=== PATIENT | female | born 1965 | race Caucasian/White ===

== ENCOUNTER → 2017-06-28 | Outpatient (CLI) | payer OTHER ==
[~2017-06-28] MED LIST: ONDANSETRON HCL4 M2 PO; PERCOCET 10-321 EACH PO
--- NOTE | ~2017-06-28 | EKG ---
[place] [address] [address] [facility] [place] [address] ELECTROCARDIOGRAM REPORT Name: DARRIN HO Room #: [facility]#: [id number] Admission: 06/28/17 Attend Phys: Kelsey Hillman MD Discharge: Date of : 61 Report #: [id number] THIS REPORT FOR: //name// [facility] Test Date: 2017-06-28 Test Time: 14:00:13 Pat Name: DARRIN HO Department: Room: Gender: F Network Support Analyst: MEL : 1965 Requested By: Kelsey Hillman Order Number: [id number] MD: William Sargent Measurements Intervals [place] Rate: 72 P: 60 GA: 154 QRS: 57 QRSD: 98 T: 27 QT: 399 QTc: 437 Interpretive Statements Sinus rhythm Baseline wander in lead(s) V3 No previous ECG available for comparison Electronically Signed On 06-29-2017 12:41:10 CDT by William Sargent [email or web address] <ELECTRONICALLY SIGNED> By: William Sargent MD, [facility] 06/29/17 1241 1400 [facility] William Sargent MD, FACC /EPI
== END | disposition home or self-care (01) ==
LOC: LITH 13:28
DX: N20.0 Calculus of kidney (principal); Z88.6 Allergy status to analgesic agent